=== PATIENT | male | born 1980 | race Caucasian/White ===

== ENCOUNTER 2018-02-27 16:09 | Emergency (ER) | payer MEDICAID ==
[~2018-02-27] VITALS: Ht 172.7 cm; Wt 116.1 kg
[2018-02-27 16:17] VITALS: Ht 172.7 cm; Wt 116.1 kg
[2018-02-27 16:41] VITALS: BP 135/78
== END 2018-02-27 16:41 | disposition home or self-care (01) ==
LOC: ED 16:09
DX: K62.89 Other specified diseases of anus and rectum (principal)

== ENCOUNTER 2018-11-09 12:51 | Emergency (ER) | payer OTHER ==
[~2018-11-09] VITALS: Ht 172.7 cm; Wt 119.0 kg
[2018-11-09 13:09] VITALS: BP 137/85; Ht 172.7 cm; Wt 119.0 kg
== END 2018-11-09 14:28 | disposition home or self-care (01) ==
LOC: ED 12:51
DX: R51 Headache (principal); H57.11 Ocular pain, right eye; H57.12 Ocular pain, left eye